=== PATIENT | male | born 1970 | race Caucasian/White ===

== ENCOUNTER 2017-04-15 18:25 | Emergency (ER) | payer BC ==
[2017-04-15] MEDS ORDERED: ACETAMINOPHEN 1,000 MG/100 ML BTL IVPB ONE (18:35)
--- NOTE | 2017-04-15 18:36 | Emergency Department Record ---
History of Present Illness - General Stated Complaint: COUGH,FEVER, Time Seen by Provider: 04/15/17 18:32 Source: Patient Mode of Arrival: Ambulatory Limitations: No limitations - History of Present Illness Initial Comments: 46 yo male presents to ED for evaluation of cough and fever symptoms for the past several days. Patient was seen at [facility] 5 days ago, started on Tamiflu at that time (testing was not performed). Patient reports that his symptoms have however worsened over the past 1-2 days. Patient denies health problems at his baseline. Patient does report taking Ibuprofen 1 hours ago. MD Complaint: Cough, Fever Onset/Timin -: Days(s) Severity: Moderate Quality: Aching Consistency: Constant Improves With: Nothing Worsens With: Nothing Associated Symptoms: Myalgias Treatments Prior to Arrival: Ibuprofen - Related Data Previous Rx's Medication Instructions Recorded Doxycycline Hyclate [Doxycycline] 200 mg PO BID #18 cap 04/15/17 Allergies Allergy/AdvReac Type Severity Reaction Status Date / Time No Known Drug Allergies Allergy Verified 04/15/17 19:59 Review of Systems Constitutional: Reports: Fever, Malaise, Weakness. Denies: Chills, Night sweats Eyes: Denies: Eye discharge, Eye pain ENT: Denies: Congestion, Ear pain, Epistaxis Respiratory: Reports: Cough. Denies: Dyspnea Cardiovascular: Denies: Chest pain, Dyspnea on exertion Endocrine: Reports: Fatigue. Denies: Heat or cold intolerance Gastrointestinal: Denies: Abdominal pain, Nausea, Vomiting Genitourinary: Denies: Incontinence, Retention Musculoskeletal: Reports: Myalgia. Denies: Arthralgia, Back pain, Gout, Joint swelling Skin: Denies: Bruising, Change in color Neurological: Reports: Headache. Denies: Abnormal gait, Confusion, Tingling Psychiatric: Denies: Anxiety Hematological/Lymphatic: Denies: Anemia, Blood Clots Physical Exam - General General Appearance: Alert, Oriented x3, Cooperative, Mild distress Limitations: No limitations - Head Head exam: Atraumatic, Normocephalic, Normal inspection Head exam detail: negative: Abrasion, Contusion, Holbrook's sign, General tenderness, Hematoma, Laceration - Eye Eye exam: Normal appearance. negative: Conjunctival injection, Periorbital swelling, Periorbital tenderness, Scleral icterus - ENT Ear exam: negative: Auricular hematoma, Auricular trauma Nasal Exam: negative: Active bleeding, Discharge, Dried blood Mouth exam: negative: Drooling, Laceration, Tongue elevation Teeth exam: negative: Dental caries, Dental tenderness # - Neck Neck exam: Normal inspection. negative: Meningismus, Tenderness - Respiratory Respiratory exam: Normal lung sounds bilaterally. negative: Respiratory distress, Rhonchi, Stridor, Wheezes - Cardiovascular Cardiovascular Exam: Regular rate, Normal rhythm, Normal heart sounds - GI/Abdominal GI/Abdominal exam: Soft. negative: Rebound, Rigid, Tenderness - Rectal Rectal exam: Deferred - exam: Deferred - Extremities Extremities exam: Normal inspection. negative: Calf tenderness, Pedal edema, Tenderness - Back Back exam: Denies: CVA tenderness (R), CVA tenderness (L) - Neurological Neurological exam: Alert, Normal gait, Oriented X3 - Psychiatric Psychiatric exam: Normal affect, Normal mood - Skin Skin exam: Normal color. negative: Abrasion Type of lesion: negative: abrasion Course - Reevaluation(s) Reevaluation #1: 04/15/17 19:22 Labs reviewed and are grossly unremarkable for an acute process. Reevaluation #2: 04/15/17 19:50 Patient reassessed and updated on all results thus far, report improvement in hsi symptoms. Awaiting CXR interpretation. Will initiate Doxycycline as directed. Reevaluation #3: 04/15/17 20:33 CXR: No acute process Patient's IVFs have nearly completed, patient reports that he is feeling much improved, appears stable for discharge at this time. Medical Decision Making - Lab Data Result diagrams: 04/15/17 18:45 04/15/17 18:45 Disposition Disposition: Discharge Clinical Impression: URI (upper respiratory infection) Qualifiers: URI type: unspecified URI Qualified Code(s): J06.9 - Acute upper respiratory infection, unspecified Disposition: Home, Self-Care Condition: (2) Stable Instructions: Upper Respiratory Infection (ED) Additional Instructions: Return to ED if your symptoms worsen or if you have any concerns. Doxycycline as directed. Follow-up with your family doctor in 3-5 days as directed. Prescriptions: Doxycycline Hyclate [Doxycycline] 200 mg PO BID #18 cap Forms: Patient Portal Access Time of Disposition: 19:53 Quality - Quality Measures Quality Measures: N/A - Blood Pressure Screening Does Patient Have Any of the Following: No Blood Pressure Classification: Normal BP Reading Systolic Measurement: 113 Diastolic Measurement: 74 Screening for High Blood Pressure: < Normal BP, F/U Not Required > [G5533]
[2017-04-15 19:02] LABS: HEMATOCRIT 46.4 % (42.0-52.0); HEMOGLOBIN 16.7 gm/dl (14.0-18.0); MEAN CELL VOLUME 85.9 fl (81-97); MEAN CORPUSCULAR HEMOGLOBIN 30.9 pg (27-33); MEAN PLATELET VOLUME 10.7 fl (7.4-10.4); PLATELET COUNT 153 K/uL (130-400); RED CELL DISTRIBUTION WIDTH 12.4 % (11.5-14.5); WHITE BLOOD COUNT W/O DIFF 7.9 K/uL (4.2-12.2)
[2017-04-15 19:16] LABS: BLOOD UREA NITROGEN 15 mg/dL (6-20); CREATININE 0.9 mg/dL (0.7-1.2); EST GLOMERULAR FILTRATION RATE > 60 mL/min
[2017-04-15 19:17] LABS: TOTAL PROTEIN 7.2 g/dL (6.6-8.7)
[2017-04-15 19:19] LABS: GLUCOSE,RANDOM 110 mg/dL (74-109)
[2017-04-15 19:21] LABS: ALB/GLOB RATIO 1.4 (1.1-1.8); ALBUMIN 4.2 g/dL (4.0-5.0); ALKALINE PHOSPHATASE 67 U/L (40-129); ALT/SGPT 24 U/L (<41); AST/SGOT 24 U/L (10.0-50.0)
[2017-04-15] MEDS ORDERED: DOXYCYCLINE HYCLATE 100 MG CAPSULE PO ONE (19:49)
[2017-04-15] MEDS ORDERED: 0.9 % SODIUM CHLORIDE 1000ML 1,000 ML IV SCH (20:00)
--- NOTE | 2017-04-16 10:43 | RADIOLOGY REPORT ---
EXAM: CHEST, TWO VIEWS HISTORY: COUGH AND FEVER. TECHNIQUE: PA and lateral views of the chest were obtained. Comparison: None. FINDINGS: The heart size is normal. Mild apical pleural thickening bilaterally. The lungs appear expanded with no acute infiltrate seen. No pleural effusion or pneumothorax evident. Minor spurring in the spine with minor anterior wedging of the body of T11, presumably chronic. Old films could confirm. IMPRESSION: 1. MILD APICAL PLEURAL THICKENING BILATERALLY. 2. MILD ANTERIOR WEDGING OF T11 IS LIKELY CHRONIC. OLD FILMS COULD CONFIRM. JOB NUMBER: [id number] [facility]
== END 2017-04-15 20:56 | disposition home or self-care (01) ==
LOC: ER 18:25
DX: J06.9 Acute upper respiratory infection, unspecified (principal); R05 Cough; R50.81 Fever presenting with conditions classified elsewhere; M79.1 Myalgia
CPT/HCPCS: 71046; 80053; 85027; 96374; 99284; J7030

== ENCOUNTER 2018-04-20 12:26 | Day surgery (SDC) | payer BC ==
[2018-04-20] MEDS ORDERED: LIDOCAINE 2% MDV (20MG/ML) 20ML VIAL IV ONE (12:27)
[2018-04-20] MEDS ORDERED: FENTANYL PF 100MCG/2ML VIAL IV ONE (12:27)
[2018-04-20] MEDS ORDERED: PROPOFOL 10 MG/ML VIAL IV ONE (12:27)
--- NOTE | 2018-04-21 09:50 | Operative Note ---
DATE OF SURGERY: 04/20/2018 OPERATION: ESOPHAGOGASTRODUODENOSCOPY with multiple biopsies. INDICATION: Severe recurring epigastric pain with hiatal hernia and esophageal reflux noted on upper GI x-ray. Upper endoscopy was performed at this time for further evaluation. The patient states he has been taking antacids on an as-needed basis. He denies the use of regular anti-inflammatory drugs. This would be his first endoscopy. ANESTHESIA: Intravenous sedation was administered by the department of anesthesiology and included Diprivan titrated to effect. PROCEDURE: Following informed consent from this alert individual, including a discussion of the risks and benefits of the procedure and an opportunity for the patient to ask questions, the patient was in the left lateral decubitus position. The Olympus [id number] video endoscope was inserted into the esophagus without resistance. The proximal esophagus had a normal appearance with normal folds and distensibility. The mid esophagus likewise was free from changes. Just above the gastroesophageal junction, there was an ulceration noted with erythematous margins and a slightly nodular white base. The ulcer extended probably 1 cm in size. Below the ulcer was a small 2 cm hiatal hernia sac. The hernia sac itself was free from changes. The subdiaphragmatic stomach was entered and found to be unremarkable. The pylorus was patent. The duodenal bulb, sweep and descending duodenum were examined in a serial fashion and found to be normal as well. The endoscope was then drawn back into the body of the stomach. Retroflexion accomplished following air insufflation failed to demonstrate any additional changes. The instrument was straightened and withdrawn through the distal esophagus where multiple biopsies from the area of ulceration were taken. After biopsy, endoscope was then withdrawn through a normal mid and proximal esophagus and removed from the patient. He tolerated the procedure well and was returned to the recovery area in stable condition. IMPRESSION: 1. A 1 cm distal esophageal ulceration just above the squamocolumnar junction with erythematous margins and slightly nodular white base. Biopsies taken. 2. Small hiatal hernia. RECOMMENDATION: The patient was advised to start Protonix 40 mg twice daily for the next 6 weeks. If feeling well, he can then drop to once daily each morning. I would recommend a recheck endoscopy in 8-10 weeks to confirm ulcer healing. Further recommendations may also be forthcoming pending results of biopsy. Followup will also be with Abiodun Espinoza MD. As always, thank you for allowing me to participate in the care of your patient. CC: Abiodun Espinoza MD MTDD
== END 2018-04-20 14:35 | disposition home or self-care (01) ==
LOC: HOP 12:26
PROVIDERS: ATTEND Internal Medicine Gastroenterology
DX: R10.13 Epigastric pain (principal); K21.9 Gastro-esophageal reflux disease without esophagitis; K44.9 Diaphragmatic hernia without obstruction or gangrene; K22.10 Ulcer of esophagus without bleeding
CPT/HCPCS: 43239; 00731; J3010

== ENCOUNTER 2018-06-22 11:37 | Day surgery (SDC) | payer BC ==
[2018-06-22] MEDS ORDERED: LIDOCAINE 2% MDV (20MG/ML) 20ML VIAL IV ONE (11:38)
[2018-06-22] MEDS ORDERED: PROPOFOL 10 MG/ML VIAL IV ONE (11:38)
--- NOTE | 2018-06-23 14:40 | Operative Note ---
DATE OF SURGERY: 06/22/2018 OPERATION: ESOPHAGOGASTRODUODENOSCOPY with multiple biopsies. INDICATION: Recently discovered distal esophageal ulceration with marked inflammatory changes surrounding it and some nodularity noted as well. The patient returns at this time after treatment to assess healing and for possible re-biopsy. Clinically, he is doing much better. He was started on acid blockade therapy twice daily and his heartburn and pain have resolved. ANESTHESIA: Intravenous sedation was administered by the department of anesthesiology and included Diprivan titrated to effect. PROCEDURE: Following informed consent from this alert individual, including a discussion of the risks and benefits of the procedure and an opportunity for the patient to ask questions, the patient was in the left lateral decubitus position. The Olympus [id number] video endoscope was inserted into the esophagus without resistance. The proximal esophagus had a normal appearance with normal folds and distensibility. The mid and distal esophagus was now free from ulcerations or erosions. The squamocolumnar junction was slightly irregular but otherwise free from mucosal changes. The ulceration had completely healed. There was no nodularity. There was a small hiatal hernia noted. The stomach was entered below the diaphragm and found to be unremarkable endoscopically. The pylorus was patent. The duodenal bulb, sweep and descending duodenum were examined in a serial fashion and found to be normal. The endoscope was then withdrawn back into the body of the stomach where retroflexion accomplished following air insufflation failed to demonstrate any additional changes. The endoscope was then straightened and withdrawn back to the GE junction where multiple biopsies were taken. It was just slightly irregular. Again, the ulceration had completely healed. The endoscope was then withdrawn back through a normal mid and proximal esophagus and removed from the patient. The patient tolerated the procedure well and was returned to the recovery area in stable condition. IMPRESSION: 1. Completely healed distal esophageal ulceration as noted above. 2. Small hiatal hernia. 3. Very slightly irregular Z-line, biopsies taken. RECOMMENDATION: The patient will reduce his acid blockade therapy to once daily but add a second dose if necessary clinically. He will otherwise follow up with Dr. Espinoza. Further recommendations forthcoming pending results of biopsy. As always, thank you for allowing me to participate in the care of your patient. CC: Abiodun Espinoza MD [facility]
== END 2018-06-22 13:48 | disposition home or self-care (01) ==
LOC: HOP 11:37
PROVIDERS: ATTEND Internal Medicine Gastroenterology
DX: Z09 Encounter for follow-up examination after completed treatment for conditions other than malignant neoplasm (principal); K22.10 Ulcer of esophagus without bleeding; K44.9 Diaphragmatic hernia without obstruction or gangrene; K31.89 Other diseases of stomach and duodenum